=== PATIENT | female | born 1955 | race American Indian/Alaskan Native ===

== ENCOUNTER 2021-11-26 14:51 | Emergency (ER) | payer OTHER, MEDICAID ==
[~2021-11-26] VITALS: Ht 175.3 cm; Wt 63.5 kg
--- NOTE | 2021-11-26 15:00 | NUR ---
Magnolia barraza in [facility] - 11/26/21 at 1501 by [email or web address] During bedside with Dr Badillo patient admitted to taking losartan and aspirin daily
--- NOTE | 2021-11-26 15:00 | NUR ---
Pt triaged in waiting room
--- NOTE | 2021-11-26 15:05 | NUR ---
Pt alert and oriented x 3. Reporting 04/19 headache x 2 yrs. Reports has been seen by multiple doctors and never diagnosed with anything, even with diagnostic imaging. Awaiting MD reddy.
[2021-11-26 15:09] VITALS: BP_SYST 123
--- NOTE | 2021-11-26 15:20 | NUR ---
Walked ambulatory to rm 3 with staff assistance.
--- NOTE | 2021-11-26 16:42 | NUR ---
Dr Badillo placed orders for patient
[2021-11-26] MEDS ORDERED: DIPHENHYDRAMINE HCL 50 MG CAPSULE PO ONE (17:15)
[2021-11-26] MEDS ORDERED: METOCLOPRAMIDE HCL 10 MG TABLET PO ONE (17:15)
--- NOTE | 2021-11-26 17:30 | NUR ---
Patient to CT scan via wheelchair
--- NOTE | 2021-11-26 18:00 | NUR ---
Pt awaiting effectiveness of pain intervention. Updated re plan of care moving forward. Understanding verbalized.
[2021-11-26] MEDS ORDERED: OXYCODONE/ACETAMINOPHEN 5-325 TABLET PO ONE (18:45)
--- NOTE | 2021-11-26 19:18 | NUR ---
Report given to Dylon CASTELAN to assume care of patient
[2021-11-26 20:09] VITALS: BP_SYST 125
--- NOTE | 2021-11-26 20:10 | NUR ---
Note undone in EDM - 11/26/21 at 2011 by CARLENE Patient given written and verbal discharge instructions and verbalizes understanding. ER MD Dr. Badillo discussed with patient the results and treatment provided. Patient in stable condition. ID arm band removed. Patient educated on pain management and to follow up with PMD. Pain Scale 3/10. Opportunity for questions provided and answered. Medication side effect fact sheet provided. Patient's skin intact. Patient verbalized being picked up by friend. Patient walks with strong gait. Patient left with all belongings.
== END 2021-11-26 20:09 | disposition home or self-care (01) ==
LOC: SED 14:51
DX: R51.9 Headache, unspecified (principal); E11.9 Type 2 diabetes mellitus without complications; Z88.8 Allergy status to other drugs, medicaments and biological substances
CPT/HCPCS: 70450; 76376; 99284; J8597; Q0163

== ENCOUNTER 2022-11-11 12:29 | Emergency (ER) | payer OTHER, MEDICAID ==
[~2022-11-11] VITALS: Ht 175.3 cm; Wt 68.0 kg
[2022-11-11 12:34] VITALS: BP_SYST 197
[2022-11-11] MEDS ORDERED: METOCLOPRAMIDE HCL 10 MG/2 ML VIAL IVP ONE (14:00)
[2022-11-11] MEDS ORDERED: DIPHENHYDRAMINE INJ 50 MG/ML VIAL IVP ONE (14:00)
[2022-11-11 14:27] LABS: BASOPHILS # (AUTO) 0.1 K/uL (0.0-0.2); BASOPHILS % (AUTO) 0.7 % (0.0-2.0); EOSINOPHILS # (AUTO) 0.5 K/uL (0.0-0.4); EOSINOPHILS % (AUTO) 5.5 % (0.0-4.0); HEMATOCRIT 38.6 % (36-48); HEMOGLOBIN 12.8 g/dL (12.0-16.0); LYMPHOCYTES # (AUTO) 3.2 K/uL (1.0-5.5); LYMPHOCYTES % (AUTO) 36.1 % (20.5-51.5); MEAN CORPUSCULAR HEMOGLOBIN 27 pg (27-31); MEAN CORPUSCULAR HGB CONC 33 % (32-36); MEAN CORPUSCULAR VOLUME 82 fL (79.0-98.0); MONOCYTES # (AUTO) 0.7 K/uL (0.0-1.0); MONOCYTES % (AUTO) 7.7 % (1.7-9.3); NEUTROPHILS # (AUTO) 4.4 K/uL (1.8-7.7); PLATELET COUNT (AUTO) 333 K/uL (130-430); RED BLOOD CELL COUNT(AUTO) 4.69 MIL/uL (4.2-6.2); RED CELL DISTRIBUTION WIDTH 14.4 % (9.0-15.0); WHITE BLOOD COUNT (AUTO) 8.9 K/uL (4.8-10.8)
--- NOTE | 2022-11-11 14:30 | NUR ---
PT PLACED IN BED 4 AND MD HUIZAR AT BEDSIDE.
[2022-11-11 14:32] LABS: ERYTHROCYTE SEDIMENTATION RATE 2 MM/HR (0-20)
--- NOTE | 2022-11-11 14:35 | NUR ---
ASSUMED CARE OF A&OX4 PT WHO AMBULATED INTO ED WITH A STEADY GAIT AND W/O ANY S/S OF DISTRESS. PT REPORTED THAT SHE HAS HAD CHRONIC MIGRAINES FOR 2 YEARS AND WOULD LIKE A MIGRAINE COCKTAIL FOR THE SEVERE PAIN. PT ALSO REPORTS THAT SHE HAS HAD 1 EPISODE OF VOMITTING IN THE PAST 3 DAYS DUE TO HER PAIN. PT IS SENSITIVE TO LIGHT AND PENDING RESULTS AT THIS TIME. PT'S BP IS EXTREMELY HIGH BUT PT BELIEVES ITS ONLY THAT HIGH BECAUSE OF HER PAIN AND SHE REPORTS TAKING HER BP MEDICATION THIS MORNING ALREADY. PT PROVIDED WARM BLANKETS AND LIGHTS TURNED OFF IN ROOM.
[2022-11-11 14:40] LABS: ANION GAP 7 (5-15); CALCIUM 8.6 mg/dL (8.4-11.0); CHLORIDE 106 mmol/L (98-107); CREATININE 0.88 mg/dL (0.55-1.30); GFR AFRICAN AMERICAN 83 mL/min (>90); GLUCOSE 140 mg/dL (70-99); UREA NITROGEN, BLOOD 18 mg/dL (8-21)
[2022-11-11 14:45] LABS: ALANINE AMINOTRANSFERASE 21 U/L (12-78); ALBUMIN 3.5 g/dL (3.4-4.8); ASPARTATE AMINOTRANSFERASE 18 U/L (10-37); C-REACTIVE PROTEIN QUANT < 0.2 mg/dL (0-0.5); TOTAL BILIRUBIN 0.3 mg/dL (0.0-1.0)
--- NOTE | 2022-11-11 15:23 | NUR ---
24G RIGHT HAND IV PLACED AND FLUSHED WITH 10CC NS AND THEN PT WAS GIVEN HER ORDERED IV PUSH MEDICATION. PT REMAINS STABLE AT THIS TIME AND PENDING FURTHER ORDERS. BP HAS IMPROVED BUT WILL RE-EVALUATE BP IN THE NEXT 30 MINS TO MONITOR FOR IMPROVEMENT.
[2022-11-11] MEDS ORDERED: BUTA1CAP61 PO ×2 (15:30→16:17)
[2022-11-11 16:35] VITALS: BP_SYST 147
--- NOTE | 2022-11-11 16:36 | NUR ---
Patient given written and verbal discharge instructions and verbalizes understanding. ER MD discussed with patient the results and treatment provided. Patient in stable condition. ID arm band removed. Rx of Butalb-Acetaminophen given. Patient educated on pain management and to follow up with PMD. Pain Scale 2/10. Opportunity for questions provided and answered. Medication side effect fact sheet provided.
== END 2022-11-11 16:36 | disposition home or self-care (01) ==
LOC: SED 12:29
DX: G43.909 Migraine, unspecified, not intractable, without status migrainosus (principal); E11.9 Type 2 diabetes mellitus without complications; Z88.6 Allergy status to analgesic agent; Z88.8 Allergy status to other drugs, medicaments and biological substances; Z79.899 Other long term (current) drug therapy
CPT/HCPCS: 99284; 96374; 70450; 96375; 80053; 85025; 85651; 86140; 36415; 76376; J1200; J2765

== ENCOUNTER 2022-11-27 07:00 | Day surgery (SDC) | payer OTHER, MEDICAID ==
[~2022-11-27] VITALS: Ht 175.3 cm; Wt 72.6 kg
[~2022-11-27 07:00] MED LIST: BUTA1CAP61 PO
[2022-11-27] MEDS ORDERED: DEXTROSE 50% JECT 50 ML DISP.SYRIN IVP ONE (07:15)
[2022-11-27] MEDS ORDERED: DEXTROSE 50% JECT 50 ML DISP.SYRIN ONE (07:17)
[2022-11-27] MEDS ORDERED: PROPOFOL 200MG/ 20ML VIAL (DIPRIVAN) IV ONE (10:46)
[2022-11-27] MEDS ORDERED: DESFLURANE 15 MIN GAS INH ONE (10:46)
[2022-11-27] MEDS ORDERED: SUGAMMADEX SODIUM 200 MG/2 ML VIAL IV ONE (10:46)
[2022-11-27] MEDS ORDERED: fentaNYL CITRATE/PF 100 MCG/2 ML AMP ONE (10:46)
[2022-11-27] MEDS ORDERED: LR 1,000 ML IV.SOLN IV ONE (10:46)
[2022-11-27] MEDS ORDERED: ROCURONIUM BROMIDE 10 MG/ML (ZEMURON) ONE (10:46)
[2022-11-27] MEDS ORDERED: HYDROmorphone 2 MG/ML VIAL ONE (10:46)
[2022-11-27] MEDS ORDERED: SUCCINYLCHOLINE CHLORIDE 20 MG/ML(QUELICIN) ONE (10:46)
[2022-11-27] MEDS ORDERED: ceFAZolin SODIUM 2 GM VIAL ONE (10:46)
[2022-11-27] MEDS ORDERED: OXYMETAZOLINE HCL 0.05% NASAL SPRAY NS ONE (10:46)
[2022-11-27] MEDS ORDERED: LIDOCAINE/EPI MPF 1%1:200000 30 ML VIAL ONE (10:46)
[2022-11-27] MEDS ORDERED: NS IRRIG SOLN 1000 ML IR ONE (10:46)
[2022-11-27] MEDS ORDERED: DEXAMETHASONE SOD PHOSPHATE 4 MG/ML VIAL ONE (10:46)
[2022-11-27] MEDS ORDERED: ONDANSETRON HCL 4 MG/2 ML VIAL ONE (10:46)
[2022-11-27] MEDS ORDERED: WATER FOR IRRIGATION,STERILE 1,000 ML IRRIG.SOLN IR ONE (10:46)
[2022-11-27] MEDS ORDERED: ACETAMINOPHEN I.V. 1000 MG 100 ML IV ONE (11:45)
[2022-11-27] MEDS ORDERED: HYDROmorphone 2 MG/ML VIAL IVP PRN (12:00)
[2022-11-27] MEDS ORDERED: HYDROmorphone 1 MG/ML INJ. CARTRIDGE IVP PRN ×2 (12:00)
[2022-11-27] MEDS ORDERED: ONDANSETRON HCL 4 MG/2 ML VIAL IVP PRN ×2 (12:00→12:45)
[2022-11-27] MEDS ORDERED: ONDANSETRON 4 MG ODT TAB PO PRN (12:45)
[2022-11-27] MEDS ORDERED: ACETAMINOPHEN 500 MG TABLET PO PRN (12:45)
[2022-11-27] MEDS ORDERED: NALOXONE HCL 0.4 MG/ML AMP (NARCAN) IVP PRN (12:45)
[2022-11-27] MEDS ORDERED: ACETAMINOPHEN/CODEINE 300 MG-30 MG TABLET PO PRN (12:45)
[2022-11-27 14:02] VITALS: BP_SYST 140
== END 2022-11-27 13:45 | disposition home or self-care (01) ==
LOC: SDS 07:00 → SMU 07:08 → SDS 13:45
PROVIDERS: ATTEND Otolaryngology
DX: J34.2 Deviated nasal septum (principal); J34.3 Hypertrophy of nasal turbinates; E11.40 Type 2 diabetes mellitus with diabetic neuropathy, unspecified; I10 Essential (primary) hypertension; E03.9 Hypothyroidism, unspecified; F32.A Depression, unspecified; G43.909 Migraine, unspecified, not intractable, without status migrainosus; E78.5 Hyperlipidemia, unspecified; Z79.899 Other long term (current) drug therapy
CPT/HCPCS: 87081; 30520; 30140; 30560; J3490; J1100; J2405; J2704; J0330; J3010; J1170; J7120; J0131

== ENCOUNTER 2023-06-17 12:27 | Emergency (ER) | payer MEDICAID, OTHER ==
[~2023-06-17] VITALS: Ht 175.3 cm; Wt 65.8 kg
[2023-06-17 12:30] VITALS: BP_SYST 143; PULSE 72; RESP 17; TEMP 97.2; O2SAT 99
[2023-06-17] MEDS ORDERED: NABU-140 PO (13:35)
== END 2023-06-17 13:49 | disposition home or self-care (01) ==
LOC: SED 12:27
DX: M25.572 Pain in left ankle and joints of left foot (principal); E11.9 Type 2 diabetes mellitus without complications; Z85.850 Personal history of malignant neoplasm of thyroid; Z88.6 Allergy status to analgesic agent; Z88.8 Allergy status to other drugs, medicaments and biological substances; Z79.899 Other long term (current) drug therapy
CPT/HCPCS: 99283